=== PATIENT | female | born 1995 | race Caucasian/White ===

== ENCOUNTER 2017-09-11 01:04 | Emergency (ER) | payer OTHER ==
[2017-09-11 01:06] VITALS: BP 138/95; PULSE 103; RESP 20; TEMP 97.6; O2SAT 100
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
== END 2017-09-11 02:08 | disposition home or self-care (01) ==
LOC: NEPD 01:04
DX: S29.012A Strain of muscle and tendon of back wall of thorax, initial encounter (principal); J45.909 Unspecified asthma, uncomplicated; V43.62XA Car passenger injured in collision with other type car in traffic accident, initial encounter
CPT/HCPCS: 99282